=== PATIENT | female | born 1935 | race Caucasian/White ===

== ENCOUNTER 2016-09-04 09:23 | Emergency (ER) | payer OTHER ==
[~2016-09-04] VITALS: Ht 149.9 cm; Wt 45.4 kg
--- NOTE | 2016-09-04 09:27 | ED AMS/SEIZURE/WEAK/DIZZY ---
History of Present Illness General Chief Complaint: General Adult Stated Complaint: BIBA, WEAKNESS Source: patient Exam Limitations: no limitations Vital Signs & Intake/Output Vital Signs & Intake/Output Vital Signs Date Time Temp Pulse Resp B/P B/P Pulse O2 O2 Flow FiO2 Mean Ox Delivery Rate 09/04 1450 97.0 95 18 136/65 100 Room Air 09/04 1302 97.0 88 20 131/62 100 Nasal 2.0L Cannula 09/04 0927 96.2 111 20 138/66 100 Nasal 2.0L Cannula Allergies Coded Allergies: No Known Allergies (09/04/16) Triage Nurses Notes Reviewed? yes Onset: Gradual Duration: week(s): (1), worse persistent since (TWO DAYS) Timing: recent history Injury Environment: home Severity: moderate, severe No Modifying Factors: none Associated Symptoms: WEAKNESS, POOR PO INTAKE HPI: 81 year old femgregory presents to the ER for chief complaint of weakness and failure to thrive. She is ususally wheelchair dependent and her helps her get from [facility] wheelchair to the bathroom. Today she was unable to stand and pivot. She has not been able to eat solids fora long time. She is able to tolerate clear liquids and some puddings. Past History Travel History Traveled to [place] past 21 day No Medical History Any Pertinent Medical History? see below for history Cancer(s): colon/rectal cancer, lung cancer, stage 4 metastatic colon cancer Surgical History Surgical History: colectomy Psychosocial History What is your primary language Sammarinese Family History Hx Contributory? No Review of Systems Review of Systems Constitutional: Reports: weakness. Denies: chills, fever. EENTM: Reports: no symptoms. Respiratory: Denies: short of breath. Cardiovascular: Denies: chest pain. GI: Reports: see HPI (POOR PO INTAKE), nausea. Denies: abdominal pain. Genitourinary: Denies: discharge, dysuria. Musculoskeletal: Reports: no symptoms. Skin: Reports: no symptoms. Neurological/Psychological: Reports: no symptoms. Hematologic/Endocrine: Denies: bleeding. Immunologic/Allergic: Reports: see HPI. All Other Systems: Reviewed and Negative Physical Exam Physical Exam General Appearance: alert, awake, cachetic, mild distress, thin Head: atraumatic, normal appearance Eyes: Bilateral: normal appearance, PERRL, EOMI. Ears, Nose, Throat: normal pharynx, normal ENT inspection, hearing grossly normal Neck: normal inspection, supple, full range of motion Respiratory: normal breath sounds, chest non-tender, no respiratory distress Cardiovascular: regular rate/rhythm Peripheral Pulses: 1+ radial (R), 2+ radial (L) Gastrointestinal: soft, non-tender Extremities: normal range of motion Neurologic/Psych: no motor/sensory deficits, awake, alert, oriented x 3 Skin: intact, normal color, warm/dry Core Measures ACS in differential dx? No CVA/TIA Diagnosis: No Severe Sepsis Present: No Septic Shock Present: No Progress Differential Diagnosis: anemia, dehydration, electrolyte imbalance, intracranial mass/tumor Plan of Care: Orders Procedure Date/time Status CASE MANAGEMENT CONSULT 09/04 1542 Active CASE MANAGEMENT CONSULT 09/04 1442 Active EKG 09/04 0959 Active URINALYSIS 09/04 09 Active TROPONIN LEVEL 09/04 933 Complete PARTIAL THROMBOPLASTIN TIME 09/04 933 Complete PROTHROMBIN TIME 09/04 933 Complete MAGNESIUM 09/04 933 Complete COMPREHENSIVE METABOLIC PANEL 09/04 933 Complete CBC WITHOUT DIFFERENTIAL 09/04 933 Complete Laboratory Tests 09/04/16 1003: Anion Gap 12, Estimated GFR > 60, BUN/Creatinine Ratio 22.9, Glucose 91, Calcium 8.6, Magnesium 1.8, Total Bilirubin 0.8, AST 70 H, ALT 34, Alkaline Phosphatase 90, Troponin I 0.03, Total Protein 5.3 L, Albumin 2.2 L, Globulin 3.1, Albumin /Globulin Ratio 0.7 L, PT 11.6, INR 1.11, APTT 33, CBC w Diff NO MAN DIFF REQ, RBC 4.46, MCV 71.6 L, MCH 22.6 L, RDW 23.4 H, MPV 8.5, Gran % 78.2 H, Lymphocytes % 13.1 L, Monocytes % 8.4, Eosinophils % 0.3, Basophils % 0 L, Absolute Granulocytes 4.8, Absolute Lymphocytes 0.8 L, Absolute Monocytes 0.5, Absolute Eosinophils 0, Absolute Basophils 0, PUBS MCHC 31.5 L labs, iv fluids ordered. oral potassium ordered. hadley refusing to trial to ambulate in the ED. She states she doesn't do that at baseline. case management to consult with patient regarding options for home care. hadley wishing to go home. She and her family want time to think about options for home care, [facility], etc. (BASIA MUNIZ,EFRAÍN) Initial ED EKG: NSR Departure Departure Time of Disposition: 1602 Disposition: HOME OR SELF CARE Condition: Stable Clinical Impression Primary Impression: Metastatic cancer to liver Secondary Impressions: Failure to thrive, Hypokalemia Referrals: ANILA MUNIZ,DILAN Peralta (PCP/Family) Additional Instructions: Follow-up with the list of numbers given to by our case management department. Please increase her oral intake of fluids as we discussed. Return as needed. Departure Forms: Customer Survey General Discharge Information
[2016-09-04 10:18] LABS: ABSOLUTE BASOPHIL COUNT 0 /CUMM (0.0-0.2); ABSOLUTE EOSINOPHIL COUNT 0 /CUMM (0.0-0.7); ABSOLUTE GRANULOCYTE CT 4.8 /CUMM (1.4-6.5); ABSOLUTE LYMPH COUNT 0.8 /CUMM (1.2-3.4); ABSOLUTE MONOCYTE COUNT 0.5 /CUMM (0.10-0.60); BASOPHIL % 0 % (0.0-2.0); EOSINOPHIL % 0.3 % (0-5); GRANULOCYTE % 78.2 % (42.2-75.2); HEMATOCRIT 31.9 % (37-47); MEAN CORPUSCULAR HGB 22.6 PG (27.0-31.0); MEAN CORPUSCULAR HGB CONC 31.5 G/DL (33.0-37.0); MEAN CORPUSCULAR VOLUME 71.6 FL (81.0-99.0); MEAN PLATELET VOLUME 8.5 FL (7.4-10.4); PLATELET COUNT 292 /CUMM (130-400); RBC DISTRIBUTION WIDTH 23.4 % (11.5-14.5); RED BLOOD CELL CT 4.46 /CUMM (4.20-5.40); WHITE BLOOD CELL COUNT 6.2 /CUMM (4.8-10.8)
[2016-09-04 10:25] LABS: PT 11.6 SEC (9.4-12.5); PTT 33 SEC (25-37)
[2016-09-04 16:18] VITALS: BP 124/74
== END 2016-09-04 16:19 ==
LOC: ERH 09:23
PROVIDERS: Emergency Medicine
DX: C78.7 Secondary malignant neoplasm of liver and intrahepatic bile duct (principal); E87.6 Hypokalemia; R62.7 Adult failure to thrive
CPT/HCPCS: 93005; 93010; 96360